=== PATIENT | female | born 1990 | race Caucasian/White ===

== ENCOUNTER 2022-01-02 19:30 | Emergency (ER) | payer MEDICAID, SELFPAY ==
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
[2022-01-02 20:38] VITALS: BP 132/75; PULSE 92; RESP 20; TEMP 36.7; O2SAT 98; BMI 31.2
[2022-01-02] MEDS: Acetaminophen 325 MG TABLET 650 MG PO (20:45)
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
[2022-01-02] MEDS: Lidocaine HCl 1 % MPF 5 ML VIAL SUBCUT (22:05)
[2022-01-02] MEDS: Diphth,Pertus(ACell),Tet Adult 0.5 ML SYRINGE IM (22:06)
[2022-01-02] MEDS: Lidocaine HCl 2 % Urojet 10 ML JEL.PF.APP TOPICAL (22:09)
[2022-01-02] MEDS: Clindamycin HCL 300 MG CAPSULE PO (22:09)
[2022-01-02] MEDS: HYDROmorphone HCl 2 MG TABLET PO (22:12)
== END 2022-01-03 00:51 | disposition home or self-care (01) ==
PROVIDERS: Emergency Provider Emergency Medicine Emergency Medical Services
DX: S50.312A Abrasion of left elbow, initial encounter (principal); S51.012A Laceration without foreign body of left elbow, initial encounter; S06.0X9A Concussion with loss of consciousness of unspecified duration, initial encounter; M25.552 Pain in left hip; M79.602 Pain in left arm; W19.XXXA Unspecified fall, initial encounter; Y93.9 Activity, unspecified; Y92.9 Unspecified place or not applicable; Y99.9 Unspecified external cause status; Z79.899 Other long term (current) drug therapy
CPT/HCPCS: 12002; 73030; 73060; 73090; 73502; 90471; 90715; 99283; 99284

== ENCOUNTER 2022-01-04 07:32 | Outpatient (REF) | payer MEDICAID, SELFPAY ==
--- NOTE | ~2022-01-04 | XR_ITS ---
EXAMINATION: XR FOREARM, LEFT CLINICAL INFORMATION: Pain. COMPARISON: None TECHNIQUE: AP and lateral views of the left forearm were obtained. FINDINGS: Bony alignment and mineralization are normal. There is an ulnar minus variance. No fracture, dislocation or left elbow joint effusion is seen. Mild soft tissue calcifications are redemonstrated adjacent to the olecranon process, likely related to prior soft tissue injury. No foreign body or soft tissue gas is seen. XR/XR forearm LT 2V IMPRESSION: No left forearm fracture or dislocation is seen. This no left elbow joint effusion noted.
== END 2022-01-04 07:33 | disposition home or self-care (01) ==
LOC: HO.HOSX 07:32
PROVIDERS: Visit Provider Physician Assistant
DX: S50.02XA Contusion of left elbow, initial encounter (principal)
CPT/HCPCS: 73090; 99202